=== PATIENT | male | born 1990 | race Caucasian/White ===

== ENCOUNTER 2023-03-01 09:37 | Emergency (ER) | payer BC, OTHER ==
[~2023-03-01 09:37] MED LIST: CHOL500019 PO; ENXP40I.4 SQ; INSU100C4 SQ; INSU100I14 SQ; OXYC5TAB49 PO; SENN1TAB76 PO
--- NOTE | 2023-03-01 09:48 | ED GU-Male ---
General Chief Complaint: - Reproductive Stated Complaint: SWOLLEN TESTICLE History of Present Illness Date Seen by Provider: Mar 01, 2023 Time Seen by Provider: 09:47 Initial Comments 32-year-old male presents with right swollen testicle. He reports been going on for about 2 days. He went to urgent care who just sent him out to the ER for further evaluation. Denies any fevers or chills. He denies any penile drainage or urinary symptoms. Allergies and Home Medications Allergies Coded Allergies: No Known Drug Allergies (Unverified , 11/25/12) Patient Home Medication List Home Medication List Reviewed: Yes Cholecalciferol (Vitamin D3) (Vitamin D3) 50,000 Unit Capsule, 50,000 UNIT PO Q THURSDAY, (Reported) Entered as Reported by: BROWN HALE on 11/25/121809 Insulin Aspart (Novolog Pen) 100 Unit/1 Ml Insuln.pen, 22 UNIT SQ WITH MEALS, (Reported) Entered as Reported by: BROWN HALE on 11/25/121809 Insulin Glargine,Hum.rec.anlog (Lantus) 300 Units/3 Ml Soln, 58 UNITS SQ HS, (Reported) Entered as Reported by: BROWN HALE on 11/25/121809 Oxycodone Hcl (Roxicodone) 5 Mg Tablet, 10 MG PO Q4H PRN, (Reported) Entered as Reported by: BROWN HALE on 11/25/121809 Senna (Senokot S) 1 Ea Tablet, 1 EA PO BID, (Reported) Entered as Reported by: BROWN HALE on 11/25/121809 Review of Systems Review of Systems Constitutional: no symptoms reported EENTM: no symptoms reported Respiratory: no symptoms reported Cardiovascular: no symptoms reported Gastrointestinal: no symptoms reported Genitourinary: see HPI Musculoskeletal: no symptoms reported Skin: no symptoms reported Psychiatric/Neurological: No Symptoms Reported Endocrine: No Symptoms Reported Past Mkcakef-Hlgocx-Zmhroo Hx Immunizations Up To Date Tetanus Booster (TDap): Unknown Past Medical History Reproductive Disorders: No Fractures Diabetes, Insulin dep Physical Exam Vital Signs Vital Signs - First Documented 03/01/23 09:42 Temp 36.8 Pulse 98 Resp 16 B/P (MAP) 144/102 (116) Pulse Ox 100 O2 Delivery Room Air Capillary Refill : Height, Weight, BMI Height: '" Weight: lbs. oz. kg; BMI Method: General Appearance: WD/WN, no apparent distress Cardiovascular: normal peripheral pulses, regular rate, rhythm Respiratory: chest non-tender, lungs clear Male: testicular tenderness, other (Brisk cremaster reflex, swollen epididymitis ) Progress/Results/Core Measures Suspected Sepsis SIRS Temperature: Pulse: Respiratory Rate: Blood Pressure / Mean: Results/Orders Lab Results Laboratory Tests Test 03/01/23 09:42 Range/Units Urine Color YELLOW Urine Clarity CLEAR Urine pH 6.5 5-9 Urine Specific [place] 1.020 1.016-1.022 Urine Protein NEGATIVE NEGATIVE Urine Glucose (UA) 1+ H NEGATIVE Urine Ketones NEGATIVE NEGATIVE Urine Nitrite NEGATIVE NEGATIVE Urine Bilirubin NEGATIVE NEGATIVE Urine Urobilinogen 1.0 < = 1.0 MG/DL Urine Leukocyte Esterase NEGATIVE NEGATIVE Urine RBC (Auto) NEGATIVE NEGATIVE Urine RBC 0-2 /HPF Urine WBC 2-5 /HPF Urine Crystals NONE /LPF Urine Bacteria FEW H /HPF Urine Casts NONE /LPF Urine Mucus LARGE H /LPF Urine Culture Indicated YES My Orders Orders - JEREMY ALARCON L DO Ua Culture If Indicated (03/01/23 09:51) Neis Aman Dna Urine Test (03/01/23 09:51) Chlamydia Trachomatis Urine (03/01/23 09:51) Urine Culture (03/01/23 09:42) Vital Signs/I&O 03/01/23 09:42 Temp 36.8 Pulse 98 Resp 16 B/P (MAP) 144/102 (116) Pulse Ox 100 O2 Delivery Room Air Capillary Refill : Progress Note : Progress Note Patient's lab urinalysis shows bacteria in the urine. Patient's GC chlamydia is pending however very low risk for any STDs as he is in a monogamous relationship with his . Patient's physical exam is consistent with epididymitis is with fullness in the epididymal area, brisk cremaster reflex with symptoms going on for couple days. At this time ultrasound is not available and I do not feel it is likely indicated. Torsion is very unlikely. And after discussing with him that if it was torsion he should be in much more pain and at 48 hours plus his symptoms they would not do a thing emergent. He would prefer to just do antibiotic treatment follow-up with his primary care provider next week or return to the ER if symptoms do continue to significantly worsen. He is stable and discharged home Departure Impression Primary Impression: Epididymitis, right Disposition: 01 HOME, SELF-CARE Condition: Stable Departure-Patient Inst. Referrals: NO,LOCAL PHYSICIAN (PCP/Family) Primary Care Physician Patient Instructions: Epididymitis Add. Discharge Instructions: Please follow-up with your primary care provider in a couple days for recheck of your symptoms All discharge instructions reviewed with patient and/or family. Voiced understanding. Scripts Levofloxacin (Levofloxacin) 500 Mg Tablet 500 MG PO DAILY, #7 TAB 0 Refills Prov: JEREMY ALARCON DO 03/01/23 JEREMY ALARCON DO Mar 01, 2023 09:48
[2023-03-01 09:56] LABS: BILIRUBIN,URINE NEGATIVE (NEGATIVE); CLARITY,URINE CLEAR; COLOR,URINE YELLOW; GLUCOSE, URINE (UA) 1+ (NEGATIVE); KETONES,URINE NEGATIVE (NEGATIVE); LEUKOCYTE ESTERASE ,URINE NEGATIVE (NEGATIVE); NITRITE,URINE NEGATIVE (NEGATIVE); PH,URINE 6.5 (5-9); PROTEIN,URINE NEGATIVE (NEGATIVE)
[2023-03-01 09:59] LABS: BACTERIA,URINE FEW /HPF; RBC,URINE 0-2 /HPF
[2023-03-01] MEDS ORDERED: LEVO-55 PO (10:10)
[2023-03-01 10:13] VITALS: BP 144/102
== END 2023-03-01 10:13 | disposition home or self-care (01) ==
LOC: ER FS 09:38
DX: N45.1 Epididymitis (principal); R82.71 Bacteriuria; E11.9 Type 2 diabetes mellitus without complications; Z79.4 Long term (current) use of insulin; Z28.310 Unvaccinated for COVID-19
CPT/HCPCS: 36415; 81000; 87088; 87491; 87591; 99282